=== PATIENT | male | born 2005 | race Asian ===

== ENCOUNTER 2024-12-15 23:04 | Emergency (ER) | payer OTHER, SELFPAY ==
--- NOTE | ~2024-12-15 | XR_ITS ---
CLINICAL HISTORY: fever 1 view chest x-ray Comparison: None Findings: The lungs are clear. Normal size heart. No acute fracture. IMPRESSION: 1. No acute findings. This document has been electronically signed by: Man Brar MD on 12/16/2024 00:40:41
[2024-12-15 23:05] VITALS: BP 135/75; PULSE 108; RESP 20; TEMP 38.2; O2SAT 98; BMI 25.1
[2024-12-15 23:50] VITALS: BP 135/74; PULSE 100; RESP 18; TEMP 37.8; O2SAT 98
--- NOTE | 2024-12-16 | MHC.EDTECH ---
This pct just assumed care of Patient ,vitals taken ,Patient got change into hospital gown ,and hooked up to youth nutritional monitor ,blood drawn including both sets of blood culture and lactic acid ,strep, rsv/covid swab and urine sample all collected and sent to lab .
[2024-12-16 00:02] LABS: MANUAL DIFF FLAG NO
[2024-12-16 00:03] LABS: Basophils Percent Auto 0.3 % (0-2); Eosinophils Percent Auto 0.1 % (0-4); Hematocrit 37.5 % (42.0-52.0); Hemoglobin 12.8 g/dl (14.0-18.0); Imm Gran Abs Auto 0.04 X10*3/uL (0.00-0.03); Imm Gran Pct Auto 0.4 % (0.0-0.4); Lymphocytes Percent Auto 9.5 % (20-40); Mean Corpuscular HGB Conc 34.1 g/dl (31.0-36.0); Mean Corpuscular Hemoglobin 28.2 pg (27.0-33.0); Mean Corpuscular Volume 82.6 fL (80.0-98.0); Mean Platelet Volume 8.9 fL (9.4-12.4); Monocytes Absolute Auto 0.7 X10*3/uL (0.1-1.2); Monocytes Percent Auto 6.2 % (2-11); Neutrophils Absolute Auto 8.7 x10*3/uL (2.0-8.3); Neutrophils Percent Auto 83.5 % (45-73); Platelet Count 177 X10*3/uL (160-400); Red Blood Count 4.54 X10*6/uL (4.60-5.80); Red Cell Distribution Width 12.3 % (11.0-16.0); White Blood Count 10.4 X10*3/uL (4.8-10.8)
[2024-12-16] MEDS: 0.9 % Sodium Chloride 2,177.25 ML 2177.25 ML IV (00:10)
[2024-12-16] MEDS: Acetaminophen 325 MG TABLET 975 MG PO (00:10)
[2024-12-16] MEDS: cefTRIAXone sodium 2 GM VIAL IVPUSH (00:10)
[2024-12-16 00:17] LABS: Lactic Acid 1.2 mmol/L (0.5-2.0)
[2024-12-16 00:19] LABS: Alanine Aminotransferase 31 U/L (0-40); Albumin Level 3.8 g/dL (3.5-5.0); Alkaline Phosphatase 59 U/L (39-117); Anion Gap 15 (12-20); Aspartate Amino Transferase 36 U/L (5-37); Bilirubin Total 0.5 mg/dL (0.0-1.0); Blood Urea Nitrogen 7 mg/dL (9-16); Calcium 8.5 mg/dL (8.4-10.2); Carbon Dioxide 21 mmol/L (22-29); Chloride 105 mmol/L (96-108); Creatinine Clr Calc Pharmacy 143.7; Estimated Glomerular Filt Rate > 60; Glucose Random 123 mg/dL (60-115); Lipase 20 U/L (8-78); Potassium 4.1 mmol/L (3.3-5.1); Sodium 137 mmol/L (135-145); Total Protein 6.8 g/dL (6.5-8.0)
[2024-12-16 00:21] LABS: Appearance Urine Clear; Color Urine Yellow; Glucose Urine UA Negative (Negative); Leukocyte Esterase Urine Negative (Negative); Nitrite Urine Negative (Negative); Specific Gravity - Urine <= 1.005 (1.005-1.025); Urine Blood Negative (Negative); Urine Ketones Negative (Negative); Urine Protein Negative (Neg-Trace)
[2024-12-16 00:23] LABS: IDNOW Serial# 6674DD1D; Strep A Nucleic Acid Negative (Negative)
[2024-12-16 00:46] LABS: Monotest Negative (Negative)
--- NOTE | 2024-12-16 00:47 | ED.GENADULT ---
HPI - General Adult General Chief complaint: Fever Stated complaint: 104.6 fever Time Seen by Provider: 12/15/24 23:45 Source: patient Limitations: no limitations History of Present Illness ED Provider: Caridad Oropeza PA-C HPI narrative: 19-year-old male presents with fevers. Patient states he has been intermittently sick since November 08. Associated fever, sore throat, neck pain, has been his primary issues. Patient has been seen at multiple facilities. He initially was diagnosed with sinusitis, placed on antibiotics. His symptoms persisted. He went to [facility] earlier today, had a broad assessment, was told he had a underlying viral syndrome. Patient states he has been trying to manage his fevers at home, he is still febrile. Patient still has neck pain, but the throat pain has subsided. Denies cough, abdominal pain, nausea vomiting diarrhea. No dysuria. Related Data Allergies Allergy/AdvReac Type Severity Reaction Status Date / Time No Known Allergies Allergy Verified 12/15/24 23:13 Review of Systems Review of Systems: Yes all other systems are reviewed and are negative Constitutional: Constitutional: Reports fatigue, Reports fever(s) and Reports malaise ENT: Reports sore throat Cardiovascular: Cardiovascular: Denies chest pain and Denies dyspnea Respiratory: Respiratory: Denies cough and Denies dyspnea Gastrointestinal: Gastrointestinal: Denies abdominal pain, Denies diarrhea, Denies nausea and Denies vomiting Genitourinary: Genitourinary: Denies dysuria Endocrine: Endocrine: Reports fatigue PMF Past Medical History Attestation statement: The following information was validated with the patient. Social History Social History Advance Directives: No Advance Directives Information Provided: Yes Physical Exam ED Vital Signs: Vital Signs - 24 hr 12/15/24 23:05 12/15/24 23:50 12/16/24 01:39 Temperature 100.7 F H 100.0 F Pulse Rate 108 H 100 Respiratory Rate 20 18 Blood Pressure 135/75 135/74 115/67 Pulse Oximetry 98 98 Oxygen Delivery Method Room Air 12/16/24 01:50 12/16/24 02:03 Temperature 99.2 F Pulse Rate 81 Respiratory Rate 20 Blood Pressure 120/63 122/65 Pulse Oximetry 96 Oxygen Delivery Method Room Air BMI result Body Mass Index 25.1 Const Other: Alert well-appearing Orientation/consciousness: patient oriented x3 HENMT Other: Oropharynx is erythematous, tonsils are prominent with overlying exudate, uvula midline, no trismus no drooling no sublingual fluctuance, no swelling inferior to the jawline. Neck Other: Full range of motion, no meningeal signs, anterior cervical lymphadenopathy noted, no prominent nodes in posterior cervical chain Resp Effort & Inspection: normal respiratory effort Cardio Other: Normal peripheral perfusion Skin Other: Warm dry no rash Neuro General: patient oriented x3, gait normal, no focal motor deficits and CN's II-XI intact bilaterally Psych Other: Cooperative Course Reevaluation(s) Reevaluation #1: This is a sepsis focused exam performed on December 15 at 11:45 p.m., which is time stamp below, we will be adding blood cultures, lactic acid, giving weight based IV fluid with Tylenol and starting ceftriaxone. Time: 23:45 Reevaluation #2: Discussed results with the patient, we have not identified a source. I asked if he had risk for STD, if his pharyngitis could potentially be related to chlamydia or gonorrhea, he states there was potential. He already received ceftriaxone, we will give him a dose of azithromycin. Medications Administered Discontinued Medications Generic Name Dose Route Start Last Admin Trade Name Freq PRN Reason Stop Dose Admin Acetaminophen 975 mg 12/15/24 23:45 12/16/24 00:10 Acetaminophen 325 Mg Tablet PO 12/15/24 23:46 975 mg ONCE ONE Administration Ceftriaxone Sodium 2 gm 12/15/24 23:45 12/16/24 00:10 Ceftriaxone Sodium 2 Gm Vial IVPUSH 12/15/24 23:46 2 gm ONCE ONE Administration Sodium Chloride 2,177.25 mls @ 2,177.25 mls/hr 12/15/24 23:45 12/16/24 01:24 Ns 30 ml/kg infuse over 1 hr (2177.25 ml) 12/16/24 00:44 Infused IV Infusion .Q1H STA Medical Decision Making Medical Decision Making MDM Narrative: 19-year-old male presents with fevers. Patient states he has been intermittently sick since November 08. Associated fever, sore throat, neck pain, has been his primary issues. Patient has been seen at multiple facilities. He initially was diagnosed with sinusitis, placed on antibiotics. His symptoms persisted. He went to [facility] earlier today, had a broad assessment, was told he had a underlying viral syndrome. Patient states he has been trying to manage his fevers at home, he is still febrile. Patient still has neck pain, but the throat pain has subsided. Denies cough, abdominal pain, nausea vomiting diarrhea. No dysuria. Problem: Fever History: Per patient I have considered the following differential diagnoses: Sepsis, strep pharyngitis, RPA, COUTIERIER, mononucleosis, pneumonia, UTI, viral syndrome, meningitis Plan: Sepsis considered, the patient was febrile, in addition to basic screening labs, adding blood cultures, lactic acid, giving IV fluid with a ceftriaxone and Tylenol. Based on my exam, the most likely source is strep pharyngitis versus mononucleosis. We will be adding these tests. Also screening a chest x-ray, urinalysis and viral panel. Thought about RPA or COUTIERIER, however there were no exam findings concerning for either condition. Also thought about meningitis given neck pain, however there are no meningeal signs on exam. I have independently reviewed the following tests: Labs: No overall leukocytosis, left shift noted, not anemic, no electrolyte abnormality, lactic 1.2, urine negative, mono screen negative, strep screen negative Chest x-ray:Findings: The lungs are clear. Normal size heart. No acute fracture. IMPRESSION: 1. No acute findings. Lab Data 12/15/24 23:56 12/15/24 23:56 Labs: Lab Results 12/15/24 12/16/24 12/16/24 Range/Units 23:56 00:07 00:09 WBC 10.4 (4.8-10.8) X10*3/uL RBC 4.54 L (4.60-5.80) X10*6/uL Hgb 12.8 L (14.0-18.0) g/dl Hct 37.5 L (42.0-52.0) % MCV 82.6 (80.0-98.0) fL MCH 28.2 (27.0-33.0) pg MCHC 34.1 (31.0-36.0) g/dl RDW 12.3 (11.0-16.0) % Plt Count 177 (160-400) X10*3/uL MPV 8.9 L (9.4-12.4) fL Immature Gran % (Auto) 0.4 (0.0-0.4) % Neut % (Auto) 83.5 H (45-73) % Lymph % (Auto) 9.5 L (20-40) % [place] % (Auto) 6.2 (2-11) % Eos % (Auto) 0.1 (0-4) % Baso % (Auto) 0.3 (0-2) % Lymph # (Auto) 1.0 L (1.2-4.9) X10*3/uL [place] # (Auto) 0.7 (0.1-1.2) X10*3/uL Eos # (Auto) 0.0 (0.0-0.4) X10*3/uL Baso # (Auto) 0.0 (0.0-0.2) X10*3/uL Abs Immat Gran (auto) 0.04 H (0.00-0.03) X10*3/uL Absolute Neuts (auto) 8.7 H (2.0-8.3) x10*3/uL Absolute Nucleated RBC 0.000 (0.0-0.012) X10*3/uL Nucleated RBC % (auto) 0.0 (0.0-0.2) /100WBC Sodium 137 (135-145) mmol/L Potassium 4.1 (3.3-5.1) mmol/L Chloride 105 (96-108) mmol/L Carbon Dioxide 21 L (22-29) mmol/L Anion Gap 15 (12-20) BUN 7 L (9-16) mg/dL Creatinine 0.76 (0.5-1.4) mg/dL Estim Creat Clear Calc 143.7 Estimated GFR > 60 Random Glucose 123 H (60-115) mg/dL Lactic Acid 1.2 (0.5-2.0) mmol/L Calcium 8.5 (8.4-10.2) mg/dL Magnesium 2.0 (1.6-2.6) mg/dL Total Bilirubin 0.5 (0.0-1.0) mg/dL AST 36 (5-37) U/L ALT 31 (0-40) U/L Alkaline Phosphatase 59 (39-117) U/L Total Protein 6.8 (6.5-8.0) g/dL Albumin 3.8 (3.5-5.0) g/dL Lipase 20 (8-78) U/L Urine Color Urine Appearance Urine pH (5.0-9.0) Ur Specific [place] (1.005-1.025) Urine Protein (Neg-Trace) mg/dL Urine Glucose (UA) (Negative) mg/dL Urine Ketones (Negative) mg/dL Urine Blood (Negative) Urine Nitrite (Negative) Ur Leukocyte Esterase (Negative) Monoscreen Negative (Negative) Influenza Type A (PCR) NEGATIVE (Negative) Influenza Type B (PCR) NEGATIVE (Negative) RSV RNA Qual (PCR) NEGATIVE (Negative) SARS-CoV-2 RNA (RT-PCR) NEGATIVE (Negative) S. pyogenes GrpA LEYLA Negative (Negative) 12/16/24 Range/Units 00:14 WBC (4.8-10.8) X10*3/uL RBC (4.60-5.80) X10*6/uL Hgb (14.0-18.0) g/dl Hct (42.0-52.0) % MCV (80.0-98.0) fL MCH (27.0-33.0) pg MCHC (31.0-36.0) g/dl RDW (11.0-16.0) % Plt Count (160-400) X10*3/uL MPV (9.4-12.4) fL Immature Gran % (Auto) (0.0-0.4) % Neut % (Auto) (45-73) % Lymph % (Auto) (20-40) % [place] % (Auto) (2-11) % Eos % (Auto) (0-4) % Baso % (Auto) (0-2) % Lymph # (Auto) (1.2-4.9) X10*3/uL [place] # (Auto) (0.1-1.2) X10*3/uL Eos # (Auto) (0.0-0.4) X10*3/uL Baso # (Auto) (0.0-0.2) X10*3/uL Abs Immat Gran (auto) (0.00-0.03) X10*3/uL Absolute Neuts (auto) (2.0-8.3) x10*3/uL Absolute Nucleated RBC (0.0-0.012) X10*3/uL Nucleated RBC % (auto) (0.0-0.2) /100WBC Sodium (135-145) mmol/L Potassium (3.3-5.1) mmol/L Chloride (96-108) mmol/L Carbon Dioxide (22-29) mmol/L Anion Gap (12-20) BUN (9-16) mg/dL Creatinine (0.5-1.4) mg/dL Estim Creat Clear Calc Estimated GFR Random Glucose (60-115) mg/dL Lactic Acid (0.5-2.0) mmol/L Calcium (8.4-10.2) mg/dL Magnesium (1.6-2.6) mg/dL Total Bilirubin (0.0-1.0) mg/dL AST (5-37) U/L ALT (0-40) U/L Alkaline Phosphatase (39-117) U/L Total Protein (6.5-8.0) g/dL Albumin (3.5-5.0) g/dL Lipase (8-78) U/L Urine Color Yellow Urine Appearance Clear Urine pH 7.0 (5.0-9.0) Ur Specific [place] <= 1.005 (1.005-1.025) Urine Protein Negative (Neg-Trace) mg/dL Urine Glucose (UA) Negative (Negative) mg/dL Urine Ketones Negative (Negative) mg/dL Urine Blood Negative (Negative) Urine Nitrite Negative (Negative) Ur Leukocyte Esterase Negative (Negative) Monoscreen (Negative) Influenza Type A (PCR) (Negative) Influenza Type B (PCR) (Negative) RSV RNA Qual (PCR) (Negative) SARS-CoV-2 RNA (RT-PCR) (Negative) S. pyogenes GrpA LEYLA (Negative) Discharge Plan Discharge Clinical Impression: Fever of unknown origin Patient Disposition: Home, Self-Care Instructions: Fever in Adults (ED) Additional Instructions: All of your screening labs were normal. The chest x-ray is clear you do not have pneumonia. The urinalysis was negative for a urinary tract infection. You were screened for influenza a and B, RSV and COVID, the viral panel was negative. The mononucleosis test was negative and the strep pharyngitis test was negative. You have blood cultures pending, if they grow bacteria, you will be contacted by the facility and asked to return for hospital admission for IV antibiotic therapy. You were empirically treated for both gonorrhea and chlamydia, as potential causes of your tonsillitis. Having cyclic fevers can also be due to non infectious sources such as cancer. If you continue to have these cyclic fevers, you will require further assessment as an outpatient. Stand Alone Forms: Work/School Release Print Language: Wallisian
[2024-12-16 00:53] LABS: Influenza A PCR NEGATIVE (Negative); Influenza B PCR NEGATIVE (Negative); Resp Syncy Virus RNA Qual PCR NEGATIVE (Negative); SARS COV2 PCR INHOUSE NEGATIVE (Negative)
[2024-12-16 01:39] VITALS: BP 115/67
[2024-12-16 01:50] VITALS: BP 120/63
[2024-12-16 02:03] VITALS: BP 122/65; PULSE 81; RESP 20; TEMP 37.3; O2SAT 96
[2024-12-16] MEDS: Azithromycin 500 MG TABLET 1000 MG PO (03:50)
[2024-12-16 03:51] VITALS: BP 122/65; PULSE 81; RESP 20; TEMP 37.3; O2SAT 96
== END 2024-12-16 03:53 | disposition home or self-care (01) ==
PROVIDERS: Physician Assistant Medical; Emergency Provider Internal Medicine
DX: R50.9 Fever, unspecified (principal); J02.9 Acute pharyngitis, unspecified; M54.2 Cervicalgia; Z03.818 Encounter for observation for suspected exposure to other biological agents ruled out
CPT/HCPCS: 0241U; 36415; 71045; 80053; 81003; 83605; 83690; 83735; 85025; 86308; 87040; 87651; 96361; 96374; 99284; J0696

== ENCOUNTER → 2024-12-15 23:45 | Outpatient (BNV) | payer OTHER, SELFPAY | PROVIDERS: Emergency Provider Internal Medicine; Visit Provider Radiology Diagnostic Radiology | DX: R50.9 Fever, unspecified (principal) | CPT/HCPCS: 71045 ==